=== PATIENT | female | born 1950 | race Caucasian/White ===

== ENCOUNTER 2018-02-27 11:56 | Day surgery (SDC) | payer OTHER ==
[~2018-02-27] VITALS: Ht 162.6 cm; Wt 165.6 kg
[~2018-02-27 11:56] MED LIST: ALBU90OI6 INH; ANORO ELLIPTA1 EACH INH; CITA20 PO; GABA100 PO; GABA300 PO; HYDACE10B PO; LISI5 PO; MEMA10 PO; METO25ER PO; PRAV20 PO; RANI150 PO; SENN187 PO; TIOT18 INH; TRAZ50 PO; TRIHYD253A PO; TROSPIUM CHLORI20 MG PO
[2018-02-27] MEDS ORDERED: FURO20 PO (12:36)
[2018-02-27] MEDS ORDERED: BUPR150ER PO (12:36)
[2018-02-27] MEDS ORDERED: OXYB5 PO (12:37)
[2018-02-27] MEDS ORDERED: POTASSIUM PO (12:38)
[2018-02-27] MEDS ORDERED: Potassium99 MG PO (12:38)
[2018-02-27] MEDS ORDERED: Klor-Con 1010 MEQ PO (12:39)
[2018-02-27] MEDS ORDERED: VITAMIN B12 PO (12:40)
--- NOTE | 2018-02-27 12:43 | NUR ---
History, Chart, Medications and Allergies reviewed before start of procedure. Patient confirms NPO status and agrees with scheduled surgery. Reports taking all of colon prep with clear results. Patient States Post-Procedure ride home has been arranged with Adriana.
--- NOTE | 2018-02-27 13:10 | NUR ---
02/27/18 1309 Zulema Ag PROCEDURE ROOM ENDO #1. MONITOR INTACT WITH CONTINUOUS PULSE OXIMETRY AND INTERMITTENT BP AT START OF PROCEDURE.
--- NOTE | 2018-02-27 13:54 | NUR ---
1347- PATIENT ASLEEP. BIOX DROPPED TO 85%. 2L O2/NC PLACED. BIOX UP TO 95%.
--- NOTE | 2018-02-27 14:07 | NUR ---
REPORT GIVEN TO CHAMP GREEN RN.
--- NOTE | 2018-02-27 14:23 | NUR ---
PT AWAKE AND ALERT AND REQUESTING TO SIT ON THE EDGE OF THE BED. DENIES PAIN OR NAUSEA. Discharge instructions reviewed with patient. Patient verbalizes understanding. Copy given to patient to take home.
--- NOTE | 2018-02-27 14:33 | NUR ---
SATS>90% ON RA. PT SAT ON THE EDGE OF THE BED AND ABLE TO GET DRESSED WITHOUT DIFFICULTY.Discharged via wheelchair to private car for ride home.
== END 2018-02-27 14:33 | disposition home or self-care (01) ==
LOC: ORSCMMR 11:56 → ORD 13:30 → ORSCMMR 13:30
PROVIDERS: Internal Medicine Gastroenterology
PROC: 0DBM8ZX Excision of Descending Colon, Via Natural or Artificial Opening Endoscopic, Diagnostic (ICD-10-PCS; principal; 2018-02-27 13:30)
PROC: 0DBN8ZX Excision of Sigmoid Colon, Via Natural or Artificial Opening Endoscopic, Diagnostic (ICD-10-PCS; principal; 2018-02-27 13:30)
PROC: 0DBL8ZX Excision of Transverse Colon, Via Natural or Artificial Opening Endoscopic, Diagnostic (ICD-10-PCS; principal; 2018-02-27 13:30)
PROC: 0DBK8ZX Excision of Ascending Colon, Via Natural or Artificial Opening Endoscopic, Diagnostic (ICD-10-PCS; principal; 2018-02-27 13:30)
DX: Z12.11 Encounter for screening for malignant neoplasm of colon (principal); D12.2 Benign neoplasm of ascending colon; D12.3 Benign neoplasm of transverse colon; D12.4 Benign neoplasm of descending colon; D12.5 Benign neoplasm of sigmoid colon; K64.8 Other hemorrhoids; K57.30 Diverticulosis of large intestine without perforation or abscess without bleeding; N18.3 Chronic kidney disease, stage 3 (moderate); I10 Essential (primary) hypertension; E78.00 Pure hypercholesterolemia, unspecified; F41.8 Other specified anxiety disorders; J44.9 Chronic obstructive pulmonary disease, unspecified; G47.33 Obstructive sleep apnea (adult) (pediatric); M79.7 Fibromyalgia; E66.01 Morbid (severe) obesity due to excess calories; Z68.44 Body mass index [BMI] 60.0-69.9, adult; Z79.899 Other long term (current) drug therapy; F17.210 Nicotine dependence, cigarettes, uncomplicated
CPT/HCPCS: 88305; J2250; J7120